=== PATIENT | male | born 1950 | race Caucasian/White ===

== ENCOUNTER 2016-06-19 07:46 | Inpatient (IN) | payer MEDICARE ==
[~2016-06-19] VITALS: Ht 172.7 cm; Wt 91.4 kg
[2016-06-19 08:34] LABS: BASOPHILS % (AUTO) 0.3 % (0.0-2.0); EOSINOPHILS % (AUTO) 0.5 % (1.0-6.0); HEMATOCRIT 42.8 % (41-53); HEMOGLOBIN 14.4 g/dL (13.5-17.5); LYMPHOCYTES # (AUTO) 0.8 K/uL (1.0-4.8); LYMPHOCYTES % (AUTO) 6.3 % (22.0-44.0); MEAN CORPUSCULAR HGB CONC 33.6 G/dL (31.0-37.0); MEAN CORPUSCULAR VOLUME 92 fL (80-100); MONOCYTES # (AUTO) 0.6 K/uL (0.1-1.0); NEUTROPHILS # (AUTO) 10.7 K/uL (1.8-7.7); PLATELET COUNT (AUTO) 264 K/uL (150-450); RED BLOOD CELL COUNT(AUTO) 4.64 MIL/uL (4.50-5.90); WHITE BLOOD COUNT (AUTO) 12.2 K/uL (4.5-11.0)
[2016-06-19 08:37] LABS: NEUTROPHILS % (AUTO) 87.9 % (40.0-70.0)
[2016-06-19 08:45] LABS: ANION GAP 14 mmol/L (8-16); CALCIUM, TOTAL 8.8 mg/dL (8.8-10.5); CARBON DIOXIDE 24 mmol/L (22-29); CHLORIDE 102 mmol/L (98-107); CREATININE 1.09 mg/dL (0.60-1.30); GLOMERULAR FILTR. RATE CALC > 60 mL/min (>60); POTASSIUM 3.9 mmol/L (3.5-5.1); SODIUM SERUM 140 mmol/L (136-145); UREA NITROGEN, BLOOD 21 mg/dL (7-18)
[2016-06-19 08:50] LABS: ALANINE AMINOTRANSFERASE 41 U/L (12-78); ALBUMIN 4.1 g/dL (3.4-5.0); ASPARTATE AMINOTRANSFERASE 53 U/L (15-37); BILIRUBIN,TOTAL 0.9 mg/dL (0.1-1.0); TOTAL PROTEIN, SERUM 6.7 g/dL (6.4-8.2)
[2016-06-19 09:00] LABS: RBC MORPHOLOGY COMMENT NORMAL RBC MORPH
[2016-06-19] MEDS ORDERED: HALOPERIDOL 5 MG TABLET PO PRN (11:45)
[2016-06-19] MEDS ORDERED: LORazepam 2 MG TABLET PO PRN (11:45)
[2016-06-19] MEDS ORDERED: ZOLPIDEM TARTRATE 10 MG TABLET PO PRN (11:45)
[2016-06-19 13:21] VITALS: BP 162/84
[2016-06-19 18:07] VITALS: BP 142/99
[2016-06-19] MEDS: HALOPERIDOL 5 MG TABLET PO SCH (20:26)
[2016-06-20] MEDS: HALOPERIDOL 5 MG TABLET PO SCH ×2 (08:30→20:14)
[2016-06-20 10:27] VITALS: BP 142/58
[2016-06-20 16:23] VITALS: BP 146/79
[2016-06-20] MEDS ORDERED: ACETAMINOPHEN 325 MG TABLET PO PRN (21:15)
[2016-06-20] MEDS ORDERED: BACITRACIN 28.4 GM OINTMENT TP PRN (21:15)
[2016-06-20] MEDS ORDERED: MAG HYDROX/AL HYDROX/SIMETH ES 30 ML SUSPENSION UDCUP PO PRN (21:15)
[2016-06-20] MEDS ORDERED: MAGNESIUM HYDROXIDE SUSPENSION 30 ML UDCUP PO PRN (21:15)
[2016-06-20] MEDS ORDERED: LOPERAMIDE HCL 2 MG CAPSULE PO PRN (21:15)
[2016-06-20] MEDS ORDERED: CloNIDine HCL 0.1 MG TABLET PO PRN (21:15)
[2016-06-20] MEDS ORDERED: ALBUTEROL SULFATE HFA 90 MCG/PUFF 8 GM INHALER IH PRN (21:15)
[2016-06-20] MEDS ORDERED: IBUPROFEN 600 MG TABLET PO PRN (21:15)
[2016-06-20] MEDS ORDERED: ONDANSETRON HCL 4 MG TABLET PO PRN (21:15)
[2016-06-20] MEDS ORDERED: BENZOCAINE/MENTHOL LOZENGE [8 LOZENGES/PACKET] MM PRN (21:15)
[2016-06-20] MEDS ORDERED: PETROLATUM,WHITE 71 GM JELLY TP PRN (21:15)
[2016-06-21] MEDS: LISINOPRIL 10 MG TABLET PO SCH (08:35)
[2016-06-21] MEDS: HALOPERIDOL 5 MG TABLET PO SCH ×2 (08:35→20:32)
[2016-06-21] MEDS: TERBINAFINE HCL 1% 30 GM CREAM TP SCH (08:35)
[2016-06-21 10:01] VITALS: BP 144/76
[2016-06-21 16:23] VITALS: BP 117/77
[2016-06-22 08:00] VITALS: BP 134/80
[2016-06-22] MEDS: LISINOPRIL 10 MG TABLET PO SCH (09:00)
[2016-06-22] MEDS: HALOPERIDOL 5 MG TABLET PO SCH ×2 (09:00→21:00)
[2016-06-22] MEDS: TERBINAFINE HCL 1% 30 GM CREAM TP SCH (09:44)
[2016-06-22 17:11] VITALS: BP 135/79
[2016-06-23 08:00] VITALS: BP 124/88
[2016-06-23] MEDS: HALOPERIDOL 5 MG TABLET PO SCH ×3 (08:04→21:00)
[2016-06-23] MEDS: LISINOPRIL 10 MG TABLET PO SCH ×2 (08:04→09:00)
[2016-06-23] MEDS: TERBINAFINE HCL 1% 30 GM CREAM TP SCH (08:05)
[2016-06-23 19:18] VITALS: BP 141/94
[2016-06-24] MEDS: HALOPERIDOL 5 MG TABLET PO SCH ×2 (09:00→20:23)
[2016-06-24] MEDS: LISINOPRIL 10 MG TABLET PO SCH (09:00)
[2016-06-24] MEDS: TERBINAFINE HCL 1% 30 GM CREAM TP SCH (09:00)
[2016-06-24 09:17] VITALS: BP 131/78
[2016-06-24 16:36] VITALS: BP 105/62
[2016-06-25] MEDS: HALOPERIDOL 5 MG TABLET PO SCH ×2 (09:00→20:42)
[2016-06-25] MEDS: TERBINAFINE HCL 1% 30 GM CREAM TP SCH (09:00)
[2016-06-25] MEDS: LISINOPRIL 10 MG TABLET PO SCH (09:00)
[2016-06-25 16:17] VITALS: BP 139/78
[2016-06-25] MEDS ORDERED: HALOPERIDOL LACTATE 5 MG/ML VIAL IM PRN (19:00)
[2016-06-26] MEDS: LISINOPRIL 10 MG TABLET PO SCH (09:00)
[2016-06-26] MEDS: HALOPERIDOL 5 MG TABLET PO SCH ×2 (09:00→20:05)
[2016-06-26] MEDS: TERBINAFINE HCL 1% 30 GM CREAM TP SCH (10:27)
[2016-06-26 12:43] VITALS: BP 141/88
[2016-06-26 17:00] VITALS: BP 149/78
[2016-06-27 08:00] VITALS: BP 165/89
[2016-06-27] MEDS: TERBINAFINE HCL 1% 30 GM CREAM TP SCH (08:19)
[2016-06-27] MEDS: HALOPERIDOL 5 MG TABLET PO SCH ×2 (08:42→20:29)
[2016-06-27] MEDS: LISINOPRIL 10 MG TABLET PO SCH (08:42)
[2016-06-27] MEDS ORDERED: LISINOPRIL 10 MG TABLET PO SCH (09:00)
[2016-06-27] MEDS ORDERED: LISINOPRIL 10 MG TABLET PO ONE (10:00)
[2016-06-27 12:05] VITALS: BP 133/72
[2016-06-27 16:42] VITALS: BP 115/87
[2016-06-28 08:00] VITALS: BP 147/77
[2016-06-28] MEDS: HALOPERIDOL 5 MG TABLET PO SCH ×2 (08:13→20:11)
[2016-06-28] MEDS: LISINOPRIL 20 MG TABLET PO SCH (08:14)
[2016-06-28] MEDS: TERBINAFINE HCL 1% 30 GM CREAM TP SCH (08:55)
[2016-06-28 17:07] VITALS: BP 152/76
[2016-06-29 02:30] VITALS: BP 148/79
[2016-06-29 08:00] VITALS: BP 133/74
[2016-06-29] MEDS: HALOPERIDOL 5 MG TABLET PO SCH ×2 (08:30→20:15)
[2016-06-29] MEDS: LISINOPRIL 20 MG TABLET PO SCH (08:30)
[2016-06-29] MEDS: TERBINAFINE HCL 1% 30 GM CREAM TP SCH (08:36)
[2016-06-29 17:00] VITALS: BP 124/76
[2016-06-30 01:19] VITALS: BP 127/70
[2016-06-30 08:08] VITALS: BP 127/76
[2016-06-30] MEDS: HALOPERIDOL 5 MG TABLET PO SCH ×2 (08:43→20:45)
[2016-06-30] MEDS: LISINOPRIL 20 MG TABLET PO SCH (08:44)
[2016-06-30] MEDS: TERBINAFINE HCL 1% 30 GM CREAM TP SCH (11:11)
[2016-06-30 17:00] VITALS: BP 136/76
[2016-07-01 08:00] VITALS: BP 151/78
[2016-07-01] MEDS: LISINOPRIL 20 MG TABLET PO SCH (08:36)
[2016-07-01] MEDS: TERBINAFINE HCL 1% 30 GM CREAM TP SCH (08:36)
[2016-07-01] MEDS: HALOPERIDOL 5 MG TABLET PO SCH ×2 (08:36→20:06)
[2016-07-01 17:00] VITALS: BP 133/75
[2016-07-02] MEDS: LISINOPRIL 20 MG TABLET PO SCH (08:11)
[2016-07-02] MEDS: HALOPERIDOL 5 MG TABLET PO SCH ×2 (08:11→21:45)
[2016-07-02] MEDS: TERBINAFINE HCL 1% 30 GM CREAM TP SCH (08:15)
[2016-07-02 08:30] VITALS: BP 148/76
[2016-07-02 16:36] VITALS: BP 129/71
[2016-07-03 01:50] VITALS: BP 141/70
[2016-07-03] MEDS: LISINOPRIL 20 MG TABLET PO SCH (08:26)
[2016-07-03] MEDS: TERBINAFINE HCL 1% 30 GM CREAM TP SCH (08:26)
[2016-07-03] MEDS: HALOPERIDOL 5 MG TABLET PO SCH (08:26)
[2016-07-03 13:25] VITALS: BP 135/75
[2016-07-03 17:24] VITALS: BP 127/65
[2016-07-03] MEDS: HALOPERIDOL 10 MG TABLET PO SCH (20:28)
[2016-07-04] MEDS: LISINOPRIL 20 MG TABLET PO SCH (08:15)
[2016-07-04] MEDS: HALOPERIDOL 10 MG TABLET PO SCH ×2 (08:15→20:18)
[2016-07-04] MEDS: TERBINAFINE HCL 1% 30 GM CREAM TP SCH (08:21)
[2016-07-04 10:23] VITALS: BP 135/79
[2016-07-04 18:07] VITALS: BP 121/68
[2016-07-05] MEDS: HALOPERIDOL 10 MG TABLET PO SCH ×2 (08:26→20:40)
[2016-07-05] MEDS: LISINOPRIL 20 MG TABLET PO SCH (08:26)
[2016-07-05] MEDS: TERBINAFINE HCL 1% 30 GM CREAM TP SCH (08:27)
[2016-07-05 08:45] VITALS: BP 149/73
[2016-07-05 19:02] VITALS: BP 133/70
[2016-07-06 08:15] VITALS: BP 141/79
[2016-07-06] MEDS: HALOPERIDOL 10 MG TABLET PO SCH ×2 (08:25→20:27)
[2016-07-06] MEDS: LISINOPRIL 20 MG TABLET PO SCH (08:25)
[2016-07-06] MEDS: TERBINAFINE HCL 1% 30 GM CREAM TP SCH (09:00)
[2016-07-06 16:39] VITALS: BP 140/89
[2016-07-07 02:12] VITALS: BP 147/77
[2016-07-07] MEDS: LISINOPRIL 20 MG TABLET PO SCH (08:08)
[2016-07-07] MEDS: HALOPERIDOL 10 MG TABLET PO SCH ×2 (08:08→20:17)
[2016-07-07] MEDS: TERBINAFINE HCL 1% 30 GM CREAM TP SCH (08:09)
[2016-07-07 08:15] VITALS: BP 139/88
[2016-07-07 19:36] VITALS: BP 124/72
[2016-07-08 02:01] VITALS: BP 141/72
[2016-07-08 08:05] VITALS: BP 118/72
[2016-07-08] MEDS: LISINOPRIL 20 MG TABLET PO SCH (08:58)
[2016-07-08] MEDS: HALOPERIDOL 10 MG TABLET PO SCH ×2 (08:58→20:20)
[2016-07-08] MEDS: TERBINAFINE HCL 1% 30 GM CREAM TP SCH (09:00)
[2016-07-08 16:20] VITALS: BP 121/72
[2016-07-09 03:45] VITALS: BP 144/64
[2016-07-09 09:30] VITALS: BP 132/82
[2016-07-09] MEDS: LISINOPRIL 20 MG TABLET PO SCH (09:32)
[2016-07-09] MEDS: HALOPERIDOL 10 MG TABLET PO SCH ×2 (09:32→20:20)
[2016-07-09] MEDS: TERBINAFINE HCL 1% 30 GM CREAM TP SCH (09:33)
[2016-07-09 17:00] VITALS: BP 133/78
[2016-07-10 05:24] VITALS: BP 139/79
[2016-07-10 08:00] VITALS: BP 135/78
[2016-07-10] MEDS: LISINOPRIL 20 MG TABLET PO SCH (08:19)
[2016-07-10] MEDS: HALOPERIDOL 10 MG TABLET PO SCH (08:19)
[2016-07-10] MEDS: TERBINAFINE HCL 1% 30 GM CREAM TP SCH (08:20)
[2016-07-10] MEDS ORDERED: HALO10 PO (11:00)
[2016-07-10] MEDS ORDERED: LISI-662 PO (11:01)
[2016-07-10] MEDS ORDERED: TERB30CR15 TP (11:04)
== END 2016-07-10 14:45 | disposition home or self-care (01) | DRG 885 ==
LOC: EMS 07:48 → 3EX 12:29
DX: F20.0 Paranoid schizophrenia (principal); B35.3 Tinea pedis; G47.00 Insomnia, unspecified; I10 Essential (primary) hypertension; K59.00 Constipation, unspecified; M19.90 Unspecified osteoarthritis, unspecified site; Z91.14 Patient's other noncompliance with medication regimen; Z91.5 Personal history of self-harm; Z88.1 Allergy status to other antibiotic agents; Z72.89 Other problems related to lifestyle; Z90.49 Acquired absence of other specified parts of digestive tract; Z71.41 Alcohol abuse counseling and surveillance of alcoholic; Z79.899 Other long term (current) drug therapy
CPT/HCPCS: 99285; G0480; J1630; Q0162